=== PATIENT | male | born 1960 | race African-American/Black ===

== ENCOUNTER 2018-01-09 21:26 | Observation (INO) | payer OTHER ==
[~2018-01-09] VITALS: Ht 167.6 cm; Wt 91.9 kg
[2018-01-09 22:43] LABS: HEMATOCRIT 43.3 % (38.0-50.0); HEMOGLOBIN 14.8 G/DL (12.5-16.6); MCH 31.2 PG (29.0-34.0); MCHC 34.2 G/DL (30.0-36.0); MCV 91.4 FL (86-99); PLATELET COUNT 204 K/uL (156-360); RBC DIS.WIDTH-CV 13.8 % (11.8-14.6); RBC DIS.WIDTH-SD 46.7 % (39-53); RED BLOOD COUNT 4.74 M/uL (4.00-5.50); WHITE BLOOD COUNT 6.5 K/uL (4.1-10.2)
[2018-01-09 22:51] LABS: D-DIMER ELISA < 150.00 ng/mLDDU (<230)
[2018-01-09 22:54] LABS: CHLORIDE 107 mEq/L (99-109); SODIUM 139 mEq/L (136-147)
[2018-01-09 22:56] LABS: GLUCOSE 102 mg/dL (70-99); TOTAL PROTEIN 7.3 g/dL (6.4-8.3)
[2018-01-09 22:58] LABS: TOTAL BILIRUBIN 0.6 mg/dL (0.0-1.0)
[2018-01-09 23:00] LABS: ALKALINE PHOSPHATASE 65 IU/L (3-129); CREATININE 0.8 mg/dL (0.6-1.3)
[2018-01-09 23:01] LABS: UREA NITROGEN (BUN) 8 mg/dL (9-23)
[2018-01-09 23:02] LABS: AST (GOT) 19 IU/L (2-34)
[2018-01-09 23:03] LABS: ALT (GPT) 19 IU/L (3-49)
[2018-01-09 23:06] LABS: GFR ESTIMATE (CALCULATED) > 59 mL/min/ (58.99-99999)
[2018-01-09 23:09] LABS: TROP-I INTERPRETATION NEGATIVE; TROPONIN-I < 0.01 ng/mL (0.0-0.30)
[2018-01-09] MEDS ORDERED: LOPRESSOR25 MG PO (23:51)
[2018-01-09] MEDS ORDERED: PLAVIX75 MG PO (23:51)
[2018-01-09] MEDS ORDERED: CHILD ASPIRIN81 M1 PO (23:51)
[2018-01-09] MEDS ORDERED: LOVASTATIN40 MG PO (23:52)
[2018-01-09] MEDS ORDERED: ZANTAC150 MG PO (23:52)
[2018-01-10 02:37] LABS: LIPASE 4 U/L (1.0-51.0)
[2018-01-10 02:56] VITALS: BP 200/84
[2018-01-10 05:06] VITALS: BP 194/84
[2018-01-10 05:57] LABS: TROP-I INTERPRETATION NEGATIVE; TROPONIN-I < 0.01 ng/mL (0.0-0.30)
[2018-01-10 07:31] VITALS: BP 113/70
[2018-01-10] MEDS ORDERED: LOPRESSOR25 MG PO (08:11)
[2018-01-10] MEDS ORDERED: LISINOPRIL20 MG PO (08:11)
[2018-01-10] MEDS ORDERED: PROTONIX40 MG PO (08:21)
[2018-01-10 11:02] LABS: TROP-I INTERPRETATION NEGATIVE; TROPONIN-I < 0.01 ng/mL (0.0-0.30)
[2018-01-10 12:45] LABS: BENZODIAZEPINES, URINE SCREEN Negative (200 ng/mL)
== END 2018-01-10 15:06 | disposition home or self-care (01) ==
LOC: EME 21:26 → EDOF 01-10 00:44 → 4SOUTH 01-10 00:44 → ENRESERV 01-10 00:45 → 4SOUTH 01-10 02:44
PROVIDERS: Emergency Medicine; Hospitalist; Physician Assistant
DX: R07.89 Other chest pain (principal); R10.13 Epigastric pain; I16.0 Hypertensive urgency; I10 Essential (primary) hypertension; R00.1 Bradycardia, unspecified; Z91.14 Patient's other noncompliance with medication regimen; E78.5 Hyperlipidemia, unspecified; I25.10 Atherosclerotic heart disease of native coronary artery without angina pectoris; Z95.5 Presence of coronary angioplasty implant and graft; R11.2 Nausea with vomiting, unspecified; R06.02 Shortness of breath; F17.210 Nicotine dependence, cigarettes, uncomplicated; Z79.82 Long term (current) use of aspirin; Z79.02 Long term (current) use of antithrombotics/antiplatelets; Z87.11 Personal history of peptic ulcer disease
CPT/HCPCS: 71046; 74176; 80053; 80306 90; 83690; 84484; 85027; 85379; 93005; 99281; 99285; G0378; J0360; J2405; J7030; S0028